=== PATIENT | male | born 1935 | race Caucasian/White ===

== ENCOUNTER → 2024-05-15 10:26 | Outpatient (REF) | payer OTHER, SELFPAY | LOC: RAD 10:26 | PROVIDERS: ATTENDING PHYSICIAN Family Medicine | DX: N40.0 Benign prostatic hyperplasia without lower urinary tract symptoms (principal); N40.1 Benign prostatic hyperplasia with lower urinary tract symptoms | CPT/HCPCS: 78306; A9503 ==

== ENCOUNTER → 2024-07-10 11:38 | Outpatient (REF) | payer OTHER, SELFPAY | LOC: PET 11:38 | PROVIDERS: ATTENDING PHYSICIAN Urology | DX: C61 Malignant neoplasm of prostate (principal) | CPT/HCPCS: 78815 ==